=== PATIENT | female | born 1985 | race Hispanic/Latino ===

== ENCOUNTER 2020-12-10 05:30 | Inpatient (IN) | payer OTHER ==
[~2020-12-10 05:30] MED LIST: Acetaminophen 500 MG TAB PO PRN; Butorphanol Tartrate 1 MG/ML VIAL SLOW IVP PRN; Carboprost 250 MCG/ML AMP IM PRN; Diphenoxylate HCl/Atropine Tablet PO PRN; Docusate 100 MG CAP PO PRN; HYDROcodone/Acetaminophen 5/325 mg Tablet PO PRN; Ibuprofen 800 MG TAB PO PRN; Lidocaine 1% (PF) 30 ML VIAL SC PRN; Methylergonovine 0.2 MG/ML VIAL IM PRN; Misoprostol 100 MCG TAB VAG SCH; Misoprostol 200 MCG TAB PR PRN; NS w/ Oxytocin 30 units 500 ML IV SCH; NS w/ Oxytocin 30 units 500 ML IVPB SCH; Ondansetron PF 4 MG/2 ML Vial IVP PRN; Promethazine HCl 25 MG/ML VIAL IM PRN; hydrALAZINE 20 MG/ML VIAL SLOW IVP PRN
[2020-12-10] MEDS ORDERED: Bupivacaine 0.25% HCL 30 ML VIAL ONE (07:00)
[2020-12-10] MEDS ORDERED: ePHEDrine Sulfate 50 MG/10 ML VIAL ONE (07:00)
[2020-12-10] MEDS ORDERED: Lidocaine 2% MPF 10 ML AMP (For Epidural Use) ONE (07:00)
[2020-12-10 08:31] LABS: Hemoglobin 11.3 g/dL (12.0-15.5); Mean Corpuscular HGB CONC 32.2 g/dL (32.0-36.0); Mean Corpuscular Hemoglobin 28.4 pg (27.0-33.0); Mean Corpuscular Volume 88.2 fl (81.6-98.3); Mean Platelet Volume 12.6 fl (7.4-10.4); Platelet Count 211 10x3/uL (150-450); RBC Distribution Width 18.6 % (11.5-14.5); Red Blood Cell (RBC) Count 3.98 10x6/uL (3.90-5.03); White Blood Cell (WBC) Count 10.8 10x3/uL (3.5-10.5)
[2020-12-10 09:06] LABS: Hep B Surf Ag Non-Reactive S/CO (NonReactive); Syphilis Antibody Nonreactive (Nonreactive); Syphilis Antibody Index 0.03 S/CO (<1.00 Non-Reactive)
[2020-12-10 09:16] LABS: HBSAg Index 0.12 S/CO (0-0.99)
[2020-12-10] MEDS: Lactated Ringer's 1,000 ML IV SCH (09:33)
[2020-12-10] MEDS: NS w/ Oxytocin 30 units 500 ML IV SCH ×2 (09:33→18:17)
[2020-12-10] MEDS ORDERED: Fentanyl 2 mcg/Bup 0.1% Cadd 100 ML ONE (10:51)
[2020-12-10] MEDS ORDERED: Lactated Ringer's 500 ML IV PRN (12:13)
[2020-12-10] MEDS ORDERED: Acetaminophen 325 MG TAB PO PRN (12:13)
[2020-12-10] MEDS ORDERED: Promethazine HCl 25 MG/ML VIAL IM PRN ×2 (12:13→19:57)
[2020-12-10] MEDS ORDERED: Hydrocerin (Eucerin) Cream 120 gm Jar TOP PRN (12:13)
[2020-12-10] MEDS ORDERED: ePHEDrine Sulfate 50 MG/10 ML VIAL SLOW IVP PRN (12:13)
[2020-12-10] MEDS ORDERED: Ondansetron PF 4 MG/2 ML Vial IVP PRN ×2 (12:13→19:57)
[2020-12-10] MEDS ORDERED: Naloxone HCl 0.4 mg/ml Vial IVP PRN ×2 (12:13)
[2020-12-10] MEDS ORDERED: diphenhydrAMINE 50 MG/ML VIAL IVP PRN (12:13)
[2020-12-10] MEDS ORDERED: Communication Order-Pharmacy FS SCH (12:15)
[2020-12-10] MEDS ORDERED: Fentanyl 2 mcg/Bupivacaine 0.1% Cassette 100 ML EPIDURAL SCH (12:15)
[2020-12-10] MEDS ORDERED: Misoprostol 200 MCG TAB ONE (15:13)
[2020-12-10 17:00] VITALS: BMI 25.7
[2020-12-10] MEDS ORDERED: Milk Of Magnesia 30 ML UDCUP PO PRN (19:57)
[2020-12-10] MEDS ORDERED: Benzocaine-Menthol 82.5 ML CAN TOP PRN (19:57)
[2020-12-10] MEDS ORDERED: Measles/Mumps/Rubella 10 MCG/0.5 ML VIAL SC ONE (19:57)
[2020-12-10] MEDS ORDERED: diphenhydrAMINE 25 MG CAP PO PRN (19:57)
[2020-12-10] MEDS ORDERED: Zolpidem Tartrate 5 MG TAB PO PRN (19:57)
[2020-12-10] MEDS ORDERED: HYDROcodone/Acetaminophen 5/325 mg Tablet PO PRN (19:57)
[2020-12-10] MEDS ORDERED: hydrALAZINE 20 MG/ML VIAL SLOW IVP PRN (19:57)
[2020-12-10] MEDS ORDERED: Lanolin Ointment 7 GM TUBE TOP PRN (19:57)
[2020-12-10] MEDS ORDERED: Boostrix 0.5 ML (Tdap) VIAL IM ONE (19:57)
[2020-12-10] MEDS ORDERED: Preparation H Ointment 28 GM TUBE PR PRN (19:57)
[2020-12-10] MEDS ORDERED: Varicella virus, LIVE 0.5 ML VIAL SC ONE (19:57)
[2020-12-10] MEDS ORDERED: Bisacodyl 10 MG SUPP PR PRN (19:57)
[2020-12-10] MEDS ORDERED: NS w/ Oxytocin 30 units 500 ML IV SCH (20:00)
[2020-12-10] MEDS: Docusate Calcium (SURFAK) 240 MG CAP PO SCH (20:38)
[2020-12-10] MEDS: HYDROcodone/Acetaminophen 5/325 mg Tablet PO PRN (20:38)
[2020-12-11] MEDS: Lactated Ringer's 1,000 ML IV SCH (01:07)
[2020-12-11] MEDS: Ibuprofen 800 MG TAB PO SCH ×3 (01:54→18:10)
[2020-12-11] MEDS: HYDROcodone/Acetaminophen 5/325 mg Tablet PO PRN ×4 (01:54→16:34)
[2020-12-11 06:56] LABS: Hemoglobin 9.3 g/dL (12.0-15.5); Mean Corpuscular Hemoglobin 27.8 pg (27.0-33.0); Mean Corpuscular Volume 89.6 fl (81.6-98.3); Mean Platelet Volume 11.9 fl (7.4-10.4); Platelet Count 166 10x3/uL (150-450); RBC Distribution Width 18.5 % (11.5-14.5); Red Blood Cell (RBC) Count 3.35 10x6/uL (3.90-5.03); White Blood Cell (WBC) Count 11.2 10x3/uL (3.5-10.5)
[2020-12-11] MEDS: Prenatal Vitamin 1 TAB PO SCH (09:20)
[2020-12-11] MEDS: Ferrous Sulfate 325 MG TAB PO SCH ×2 (09:20→18:10)
[2020-12-11] MEDS: Docusate Calcium (SURFAK) 240 MG CAP PO SCH ×2 (09:20→21:10)
[2020-12-11] MEDS ORDERED: Naloxone HCl 0.4 mg/ml Vial IV PRN (19:02)
[2020-12-11] MEDS ORDERED: diphenhydrAMINE 25 MG CAP PO PRN (19:02)
[2020-12-11] MEDS ORDERED: Zolpidem Tartrate 5 MG TAB PO PRN (19:02)
[2020-12-11] MEDS ORDERED: diphenhydrAMINE 50 MG/ML VIAL IVP PRN (19:02)
[2020-12-11] MEDS ORDERED: diphenhydrAMINE 50 MG/ML VIAL IM PRN (19:02)
[2020-12-11] MEDS ORDERED: Promethazine HCl 25 MG/ML VIAL IM PRN (19:02)
[2020-12-11] MEDS ORDERED: Ondansetron PF 4 MG/2 ML Vial IVP PRN (19:02)
[2020-12-11] MEDS ORDERED: Communication Order-Pharmacy FS PRN (19:15)
[2020-12-11] MEDS ORDERED: fentaNYL Citrate/PF PCA SYRING 50 ML IVPB PRN (19:18)
[2020-12-12] MEDS: Ibuprofen 800 MG TAB PO SCH ×3 (01:24→18:17)
[2020-12-12] MEDS: Ferrous Sulfate 325 MG TAB PO SCH ×2 (11:22→16:56)
[2020-12-12] MEDS: Docusate Calcium (SURFAK) 240 MG CAP PO SCH ×2 (11:22→21:06)
[2020-12-12] MEDS: Prenatal Vitamin 1 TAB PO SCH (11:22)
[2020-12-12] MEDS ORDERED: Acetaminophen 500 MG TAB PO PRN (16:42)
[2020-12-12] MEDS ORDERED: HYDROcodone/Acetaminophen 5/325 mg Tablet PO PRN (20:15)
[2020-12-12] MEDS: HYDROcodone/Acetaminophen 5/325 mg Tablet PO PRN (21:06)
[2020-12-13] MEDS: HYDROcodone/Acetaminophen 5/325 mg Tablet PO PRN ×5 (01:34→20:10)
[2020-12-13] MEDS: Ibuprofen 800 MG TAB PO SCH ×3 (02:34→18:06)
[2020-12-13] MEDS: Prenatal Vitamin 1 TAB PO SCH (08:24)
[2020-12-13] MEDS: Docusate Calcium (SURFAK) 240 MG CAP PO SCH (08:24)
[2020-12-13] MEDS: Ferrous Sulfate 325 MG TAB PO SCH ×2 (09:32→18:06)
[2020-12-13 17:38] VITALS: BP 122/59; TEMP 98
== END 2020-12-13 20:24 | disposition home or self-care (01) | DRG 807 ==
LOC: CSHLD 06:10 → CSHPP 18:23
PROVIDERS: ADMIT Obstetrics & Gynecology; ATTEND Obstetrics & Gynecology
PROC: 10E0XZZ Delivery of Products of Conception, External Approach (ICD-10-PCS; principal; 2020-12-10)
PROC: 10907ZC Drainage of Amniotic Fluid, Therapeutic from Products of Conception, Via Natural or Artificial Opening (ICD-10-PCS; 2020-12-10)
PROC: 3E033VJ Introduction of Other Hormone into Peripheral Vein, Percutaneous Approach (ICD-10-PCS; 2020-12-10)
PROC: 0HQ9XZZ Repair Perineum Skin, External Approach (ICD-10-PCS; 2020-12-10)
PROC: 3E0R3GC Introduction of Other Therapeutic Substance into Spinal Canal, Percutaneous Approach (ICD-10-PCS; 2020-12-13)
DX: O77.0 Labor and delivery complicated by meconium in amniotic fluid (principal); Z37.0 Single live birth; Z3A.39 39 weeks gestation of pregnancy; O70.0 First degree perineal laceration during delivery; G97.1 Other reaction to spinal and lumbar puncture; O89.4 Spinal and epidural anesthesia-induced headache during the puerperium; Z20.822 Contact with and (suspected) exposure to COVID-19
CPT/HCPCS: 36415; 51702; 85027; 86780; 86850; 86900; 86901; 87340; 90715; J2590; J3010; S0020